=== PATIENT | male | born 1975 | race Caucasian/White ===

== ENCOUNTER 2018-11-22 07:46 | Emergency (ER) | payer OTHER ==
[~2018-11-22] VITALS: Ht 172.7 cm; Wt 95.3 kg
[~2018-11-22 07:46] MED LIST: BECL8.7A5 IH
--- NOTE | 2018-11-22 07:50 | NUR ---
PT BIB SELF C/O WORSENING COUGH AND SOB, PT IS AAOX4. NOT IN RESPIRATORY DISTRESS. BP ELAVATED. KEPT RESTED AND COMFORTABLE, WILL CONTINUE TO MONITOR.
--- NOTE | 2018-11-22 08:13 | NUR ---
PT LABS DRAWNED AND SENT TO LAB. AWAITING RESULTS.
[2018-11-22] MEDS ORDERED: DEXAMETHASONE SOD PHOSPHATE 10 MG/ML VIAL ONE (08:15)
--- NOTE | 2018-11-22 08:15 | NUR ---
RADIOLOGY AT BEDSIDE FOR XRAY.
[2018-11-22 08:20] LABS: BASOPHILS # (AUTO) 0.1 /CMM (0.0-0.2); BASOPHILS % (AUTO) 0.7 % (0.0-2.0); EOSINOPHILS % (AUTO) 7.9 % (0.0-6.0); HEMATOCRIT 43 % (39-51); HEMOGLOBIN 14.6 g/dL (13.5-17.5); LYMPHOCYTES # (AUTO) 2.1 /CMM (0.8-4.8); LYMPHOCYTES % (AUTO) 24.5 % (20.0-44.0); MEAN CORPUSCULAR HGB CONC 34 g/dl (31.0-36.0); MEAN CORPUSCULAR VOLUME 89 fL (80-96); MONOCYTES # (AUTO) 0.8 /CMM (0.1-1.30); MONOCYTES % (AUTO) 9.3 % (2.0-12.0); NEUTROPHILS # (AUTO) 4.9 /CMM (1.8-8.9); NEUTROPHILS % (AUTO) 57.6 % (43.0-81.0); PLATELET COUNT (AUTO) 299 /CMM (150-450); RED BLOOD CELL COUNT(AUTO) 4.86 MIL/uL (4.5-6.0); WHITE BLOOD COUNT (AUTO) 8.5 K/uL (4.3-11.0)
--- NOTE | 2018-11-22 08:22 | NUR ---
EKG DONE BY WAREHOUSE TECHNICIAN.
[2018-11-22] MEDS ORDERED: ALBUTEROL FS 2.5 MG/3 ML VIAL.NEB ONE (08:25)
[2018-11-22] MEDS ORDERED: IPRATROPIUM NEB FS 0.5 MG/2.5 ML AMPUL.NEB ONE (08:25)
[2018-11-22 08:28] LABS: CALCIUM, SERUM 9.1 mg/dL (8.5-10.1); CARBON DIOXIDE 26 mmol/L (21-32); CHLORIDE 103 mmol/L (98-107); CREATININE 0.9 mg/dL (0.6-1.3); GLUCOSE 114 mg/dL (74-106); POTASSIUM 3.3 mmol/L (3.5-5.1); SODIUM SERUM 139 mmol/L (136-145); UREA NITROGEN, BLOOD 21 mg/dL (7-18)
[2018-11-22] MEDS ORDERED: DEXAMETHASONE SOD PHOSPHATE 10 MG/ML VIAL IV ONE (08:30)
[2018-11-22] MEDS ORDERED: IPRATROPIUM NEB FS 0.5 MG/2.5 ML AMPUL.NEB NEB ONE (08:30)
[2018-11-22] MEDS ORDERED: ALBUTEROL FS 2.5 MG/3 ML VIAL.NEB NEB ONE (08:30)
[2018-11-22 08:44] LABS: B-TYPE NATRIURETIC PEPTIDE 9 PG/ML (0-125)
[2018-11-22 09:14] VITALS: BP 162/93
--- NOTE | 2018-11-22 09:16 | NUR ---
IV removed. Catheter intact and site benign. Pressure and 4x4 applied to site. No bleeding noted. Patient discharged to home in stable condition. Written and verbal after care instructions given. Patient verbalizes understanding of instruction.
== END 2018-11-22 09:15 | disposition home or self-care (01) ==
LOC: ER 07:47
DX: J45.901 Unspecified asthma with (acute) exacerbation (principal); I10 Essential (primary) hypertension
CPT/HCPCS: 36415; 71045-TC; 80048-TC; 83880; 84484-TC; 85025-TC; A4606; J1100

== ENCOUNTER 2019-12-15 15:26 | Emergency (ER) | payer BC, MEDICAID ==
[~2019-12-15] VITALS: Ht 170.2 cm; Wt 83.9 kg
--- NOTE | 2019-12-15 16:15 | NUR ---
PT AAOX4. AMBULATORY C/O HEADAHCE ON BACK OF THE HEAD SINCE HE WOKE UP (5AM.) NO ACUTE DISTRESS NOTED UPON ASSESSMENT. AWAITING MD FOR EVAL. WILL CONTINUE TO MONITOR.
[2019-12-15 16:40] VITALS: BP 148/92
--- NOTE | 2019-12-15 16:40 | NUR ---
Patient discharged to home in stable condition. Written and verbal after care instructions given. Patient verbalizes understanding of instruction. PT ambulatory with a steady gait. vss.
== END 2019-12-15 16:41 | disposition home or self-care (01) ==
LOC: ER 15:35
DX: I10 Essential (primary) hypertension (principal); J45.909 Unspecified asthma, uncomplicated; Z79.899 Other long term (current) drug therapy

== ENCOUNTER 2022-01-14 10:28 | Emergency (ER) | payer BC, MEDICAID ==
[~2022-01-14] VITALS: Ht 167.6 cm; Wt 102.1 kg
--- NOTE | 2022-01-14 10:42 | NUR ---
To ER bed 12, "Cyst at back of neck x1year now worse pain goes to back/chest/R arm", aaox3, breathing even and non labored, awaiting md orders
[2022-01-14] MEDS ORDERED: MORPHINE SULFATE INJ 2 MG/ML DISP.SYRIN IV ONE (11:30)
[2022-01-14] MEDS ORDERED: METOCLOPRAMIDE HCL 10 MG/2 ML VIAL IV ONE (11:30)
--- NOTE | 2022-01-14 11:36 | NUR ---
IV LINE IS ESTABLISHED, BLOOD SPECIMEN COLLECTED AND SENT TO THE LAB. THE LINE IS SALINE LOCKED.
[2022-01-14] MEDS ORDERED: MORPHINE SULFATE INJ 2 MG/ML DISP.SYRIN ONE (11:38)
[2022-01-14] MEDS ORDERED: METOCLOPRAMIDE HCL 10 MG/2 ML VIAL ONE (11:38)
--- NOTE | 2022-01-14 11:57 | NUR ---
THE PATIENT IS TAKEN TO [facility]
--- NOTE | 2022-01-14 12:00 | NUR ---
BACK FROM CT
[2022-01-14 12:14] LABS: BASOPHILS % (AUTO) 0.5 % (0.0-2.0); EOSINOPHILS % (AUTO) 4.3 % (0.0-6.0); HEMATOCRIT 39 % (39-51); HEMOGLOBIN 13.1 g/dL (13.5-17.5); LYMPHOCYTES # (AUTO) 2.2 K/uL (0.8-4.8); LYMPHOCYTES % (AUTO) 23.9 % (20.0-44.0); MEAN CORPUSCULAR HGB CONC 34 g/dl (31.0-36.0); MEAN CORPUSCULAR VOLUME 88 fL (80-96); MONOCYTES % (AUTO) 10.6 % (2.0-12.0); NEUTROPHILS # (AUTO) 5.6 K/uL (1.8-8.9); NEUTROPHILS % (AUTO) 60.7 % (43.0-81.0); PLATELET COUNT (AUTO) 326 K/uL (150-450); RED BLOOD CELL COUNT(AUTO) 4.44 MIL/uL (4.5-6.0); WHITE BLOOD COUNT (AUTO) 9.2 K/uL (4.3-11.0)
[2022-01-14 12:21] LABS: CALCIUM, SERUM 8.9 mg/dL (8.5-10.1); CARBON DIOXIDE 26 mmol/L (21-32); CHLORIDE 102 mmol/L (98-107); CREATININE 0.9 mg/dL (0.6-1.3); GLUCOSE 100 mg/dL (74-106); POTASSIUM 3.4 mmol/L (3.5-5.1); SODIUM SERUM 136 mmol/L (136-145); UREA NITROGEN, BLOOD 14 mg/dL (7-18)
[2022-01-14 12:25] LABS: ALANINE AMINOTRANSFERASE 36 U/L (12-78); ALBUMIN 3.9 g/dL (3.4-5.0); ALKALINE PHOSPHATASE 87 U/L (46-116); ASPARTATE AMINOTRANSFERASE 15 U/L (15-37); BILIRUBIN,DIRECT 0.1 mg/dL (0.0-0.2); BILIRUBIN,TOTAL 0.8 mg/dL (0.2-1.0)
--- NOTE | 2022-01-14 13:32 | NUR ---
CALLED INDIGO FOR READ.
[2022-01-14] MEDS ORDERED: CYCL10TA9 PO (14:18)
[2022-01-14] MEDS ORDERED: IBUP-1955 PO (14:18)
[2022-01-14] MEDS ORDERED: DIAZEPAM 5 MG TABLET PO ONE (14:30)
[2022-01-14] MEDS ORDERED: IBUPROFEN 600 MG TABLET PO ONE (14:30)
[2022-01-14] MEDS ORDERED: DIAZEPAM 5 MG TABLET ONE (14:31)
[2022-01-14] MEDS ORDERED: IBUPROFEN 600 MG TABLET ONE (14:31)
--- NOTE | 2022-01-14 14:34 | NUR ---
IV removed. Catheter intact and site benign. Pressure and 4x4 applied to site. No bleeding noted.Patient discharged to home in stable condition. Written and verbal after care instructions given. Patient verbalizes understanding of instruction.
[2022-01-14 14:35] VITALS: BP 132/90
== END 2022-01-14 14:36 | disposition home or self-care (01) ==
LOC: ER 10:31
DX: G43.909 Migraine, unspecified, not intractable, without status migrainosus (principal); M62.838 Other muscle spasm; R07.89 Other chest pain; I10 Essential (primary) hypertension; J45.909 Unspecified asthma, uncomplicated; Z79.899 Other long term (current) drug therapy
CPT/HCPCS: 36415; 70450; 71045; 72125; 80048; 80076; 84484; 85025; 93005; 96374; 96375; 99285; J2270; J2765; J7030

== ENCOUNTER 2022-06-01 10:31 | Emergency (ER) | payer BC ==
[~2022-06-01] VITALS: Ht 172.7 cm; Wt 104.3 kg
[~2022-06-01 10:31] MED LIST changes: +CYCL10TA9 PO; +IBUP-1955 PO
[2022-06-01 10:39] VITALS: BP 151/85
[2022-06-01] MEDS ORDERED: CLIN150C16 PO (11:10)
== END 2022-06-01 11:30 | disposition home or self-care (01) ==
LOC: ER 10:35
DX: T25.232A Burn of second degree of left toe(s) (nail), initial encounter (principal); I10 Essential (primary) hypertension; J45.909 Unspecified asthma, uncomplicated; Z79.899 Other long term (current) drug therapy; X08.8XXA Exposure to other specified smoke, fire and flames, initial encounter; Y93.89 Activity, other specified; Y92.89 Other specified places as the place of occurrence of the external cause; Y99.8 Other external cause status

== ENCOUNTER 2022-09-25 12:48 | Emergency (ER) | payer BC ==
[~2022-09-25] VITALS: Ht 172.7 cm; Wt 99.8 kg
[~2022-09-25 12:48] MED LIST changes: +CLIN150C16 PO
--- NOTE | 2022-09-25 13:00 | NUR ---
BIBself c/o lower back pain since yesterday 09/03 pain scale
--- NOTE | 2022-09-25 13:30 | NUR ---
at bedside for eval
[2022-09-25] MEDS ORDERED: LIDOCAINE 5% (PATCH) 1 EA PATCH TP ONE (13:54)
[2022-09-25] MEDS ORDERED: KETOROLAC TROMETHAMINE INJ 30 MG/ML VIAL ONE (13:54)
[2022-09-25] MEDS ORDERED: METHOCARBAMOL (500MG) 500 MG TABLET ONE (13:54)
[2022-09-25] MEDS ORDERED: METHOCARBAMOL (750MG) 750 MG TABLET PO SCH (14:00)
[2022-09-25] MEDS ORDERED: LIDOCAINE 5% (PATCH) 1 EA PATCH TP SCH (14:00)
[2022-09-25] MEDS ORDERED: KETOROLAC TROMETHAMINE INJ 30 MG/ML VIAL IM ONE (14:00)
--- NOTE | 2022-09-25 14:05 | NUR ---
medicated as ordered
[2022-09-25] MEDS ORDERED: DIAZEPAM 5 MG TABLET PO ONE (15:00)
[2022-09-25] MEDS ORDERED: DIAZEPAM 5 MG TABLET ONE (15:26)
[2022-09-25] MEDS ORDERED: METH-649 PO (15:47)
[2022-09-25] MEDS ORDERED: DIAZ2TAB PO (15:47)
--- NOTE | 2022-09-25 15:47 | NUR ---
valium given per orem instructed not to drive
[2022-09-25 17:06] VITALS: BP 135/81
--- NOTE | 2022-09-25 17:06 | NUR ---
Patient discharged to home in stable condition. Written and verbal after care instructions given. Patient verbalizes understanding of instruction.
== END 2022-09-25 17:06 | disposition home or self-care (01) ==
LOC: ER 12:57
DX: M54.50 Low back pain, unspecified (principal); M62.830 Muscle spasm of back; I10 Essential (primary) hypertension; E78.00 Pure hypercholesterolemia, unspecified; J45.909 Unspecified asthma, uncomplicated; Z79.899 Other long term (current) drug therapy
CPT/HCPCS: 99284; 96372; J1885

== ENCOUNTER 2024-08-08 21:06 | Emergency (ER) | payer BC ==
[~2024-08-08] VITALS: Ht 170.2 cm; Wt 102.1 kg
[~2024-08-08 21:06] MED LIST changes: +DIAZ2TAB PO; +METH-649 PO
[2024-08-08] MEDS ORDERED: TDAP [DIPH/PERTUSSIS/TET] 0.5 ML VIAL IM ONE (21:44)
[2024-08-08] MEDS: TDAP [DIPH/PERTUSSIS/TET] 0.5 ML VIAL IM ONE (21:45)
[2024-08-08] MEDS ORDERED: IBUP-1490 PO (22:08)
[2024-08-08] MEDS ORDERED: LEVO750T46 PO (22:08)
[2024-08-08] MEDS: IBUPROFEN 400 MG TABLET PO ONE (22:21)
[2024-08-08 22:28] VITALS: BP 120/80; TEMP 98; O2SAT 99
== END 2024-08-08 22:30 | disposition home or self-care (01) ==
LOC: ER 21:10
DX: S91.331A Puncture wound without foreign body, right foot, initial encounter (principal); I10 Essential (primary) hypertension; Z79.1 Long term (current) use of non-steroidal anti-inflammatories (NSAID); Z79.899 Other long term (current) drug therapy; W22.8XXA Striking against or struck by other objects, initial encounter; Y93.89 Activity, other specified; Y92.89 Other specified places as the place of occurrence of the external cause; Y99.8 Other external cause status
CPT/HCPCS: 73630-TC; 90715

== ENCOUNTER 2024-08-10 15:04 | Emergency (ER) | payer BC ==
[~2024-08-10] VITALS: Ht 172.7 cm; Wt 98.9 kg
[~2024-08-10 15:04] MED LIST changes: +IBUP-1490 PO; +LEVO750T46 PO
[2024-08-10] MEDS: hydrALAZINE HCL IV 20 MG VIAL IV ONE (15:42)
[2024-08-10] MEDS: ASPIRIN 81 MG TAB.CHEW PO ONE (15:43)
[2024-08-10 15:57] LABS: BASOPHILS # (AUTO) 0.1 K/uL (0.0-0.2); BASOPHILS % (AUTO) 0.5 % (0.0-2.0); EOSINOPHILS # (AUTO) 0.2 K/uL (0.0-0.7); EOSINOPHILS % (AUTO) 2.2 % (0.0-6.0); HEMATOCRIT 43 % (39-51); HEMOGLOBIN 14.9 g/dL (13.5-17.5); LYMPHOCYTES # (AUTO) 2.4 K/uL (0.8-4.8); LYMPHOCYTES % (AUTO) 22.8 % (20.0-44.0); MEAN CORPUSCULAR HEMOGLOBIN 31 PG (26.0-33.0); MEAN CORPUSCULAR HGB CONC 34 g/dl (31.0-36.0); MEAN CORPUSCULAR VOLUME 90 fL (80-96); MONOCYTES # (AUTO) 0.9 K/uL (0.1-1.30); MONOCYTES % (AUTO) 8.8 % (2.0-12.0); NEUTROPHILS % (AUTO) 65.7 % (43.0-81.0); PLATELET COUNT (AUTO) 280 K/uL (150-450); WHITE BLOOD COUNT (AUTO) 10.6 K/uL (4.3-11.0)
[2024-08-10 16:06] LABS: CALCIUM, SERUM 8.7 mg/dL (8.5-10.1); CARBON DIOXIDE 26 mmol/L (21-32); CHLORIDE 105 mmol/L (98-107); CREATININE 1.2 mg/dL (0.6-1.3); GLUCOSE 104 mg/dL (74-106); POTASSIUM 3.8 mmol/L (3.5-5.1); SODIUM SERUM 138 mmol/L (136-145); UREA NITROGEN, BLOOD 16 mg/dL (7-18)
[2024-08-10] MEDS ORDERED: LISINOPRIL (20MG) 20 MG TABLET ONE (16:49)
[2024-08-10] MEDS: LISINOPRIL (20MG) 20 MG TABLET PO SCH (16:50)
[2024-08-10 19:14] VITALS: BP 219/105; TEMP 98; O2SAT 97
== END 2024-08-10 19:14 | disposition home or self-care (01) ==
LOC: ER 15:24
DX: I10 Essential (primary) hypertension (principal); R07.89 Other chest pain
CPT/HCPCS: 99285; 96374; 71045; 93005; 85025; 80048; 36415; 84484; J0360

== ENCOUNTER 2024-12-05 23:28 | Emergency (ER) | payer BC ==
[~2024-12-05] VITALS: Ht 167.6 cm; Wt 97.5 kg
[2024-12-06 00:56] LABS: BASOPHILS # (AUTO) 0.1 K/uL (0.0-0.2); BASOPHILS % (AUTO) 0.8 % (0.0-2.0); EOSINOPHILS % (AUTO) 9.3 % (0.0-6.0); HEMATOCRIT 41 % (39-51); HEMOGLOBIN 14.3 g/dL (13.5-17.5); LYMPHOCYTES # (AUTO) 3.1 K/uL (0.8-4.8); MEAN CORPUSCULAR HEMOGLOBIN 31 PG (26.0-33.0); MEAN CORPUSCULAR HGB CONC 35 g/dl (31.0-36.0); MEAN CORPUSCULAR VOLUME 88 fL (80-96); MONOCYTES % (AUTO) 9.6 % (2.0-12.0); NEUTROPHILS # (AUTO) 5.3 K/uL (1.8-8.9); NEUTROPHILS % (AUTO) 50.3 % (43.0-81.0); PLATELET COUNT (AUTO) 305 K/uL (150-450); RED CELL DISTRIBUTION WIDTH 12.9 % (11.5-15.0); WHITE BLOOD COUNT (AUTO) 10.5 K/uL (4.3-11.0)
[2024-12-06 01:16] LABS: CALCIUM, SERUM 9.3 mg/dL (8.5-10.1); CARBON DIOXIDE 30 mmol/L (21-32); CHLORIDE 101 mmol/L (98-107); CREATININE 0.8 mg/dL (0.6-1.3); GLUCOSE 119 mg/dL (74-106); POTASSIUM 3.5 mmol/L (3.5-5.1); SODIUM SERUM 136 mmol/L (136-145); UREA NITROGEN, BLOOD 14 mg/dL (7-18)
[2024-12-06 01:22] LABS: ALANINE AMINOTRANSFERASE 67 U/L (12-78); ALBUMIN 4.2 g/dL (3.4-5.0); ALKALINE PHOSPHATASE 89 U/L (46-116); ASPARTATE AMINOTRANSFERASE 32 U/L (15-37); BILIRUBIN,DIRECT 0.1 mg/dL (0.0-0.2); BILIRUBIN,TOTAL 0.7 mg/dL (0.2-1.0); TOTAL PROTEIN, SERUM 8.3 g/dL (6.4-8.2)
[2024-12-06 01:32] LABS: SALICYLATE 0.5 mg/dL (2.8-20.0)
[2024-12-06 01:33] LABS: ACETAMINOPHEN <10 ug/ml (10-30); ALCOHOL, BLOOD < 3 mg/dL (0-10)
[2024-12-06 01:56] LABS: APPEARANCE,URINE CLEAR (CLEAR); BILIRUBIN,URINE NEGATIVE (NEGATIVE); BLOOD, URINE NEGATIVE Ery/uL (NEGATIVE); COLOR,URINE YELLOW (YELLOW); KETONES,URINE NEGATIVE (NEGATIVE); LEUKOCYTE ESTERASE ,URINE NEGATIVE (NEGATIVE); NITRITE, URINE NEGATIVE (NEGATIVE); PH,URINE 5.5 (5.0-8.0); PROTEIN,URINE NEGATIVE (NEGATIVE); UGLUCOSE NEGATIVE (NEGATIVE); UROBILINOGEN,URINE 0.2 EU/dL (0.2)
[2024-12-06 02:06] LABS: AMPHETAMINE, URINE NEGATIVE (NEGATIVE); BARBITURATE, URINE NEGATIVE (NEGATIVE); BENZODIAZEPINE, URINE NEGATIVE (NEGATIVE); CANNABINOID, URINE NEGATIVE (NEGATIVE); COCCAINE, URINE NEGATIVE (NEGATIVE); OPIATE, URINE NEGATIVE (NEGATIVE); PHENCYCLIDINE SCREEN,URINE NEGATIVE (NEGATIVE)
[2024-12-06 05:08] VITALS: BP 166/82; TEMP 97.9; O2SAT 96
== END 2024-12-06 05:08 | disposition home or self-care (01) ==
LOC: ER 23:32
DX: T47.1X1A Poisoning by other antacids and anti-gastric-secretion drugs, accidental (unintentional), initial encounter (principal); T48.1X1A Poisoning by skeletal muscle relaxants [neuromuscular blocking agents], accidental (unintentional), initial encounter; I10 Essential (primary) hypertension; Y92.89 Other specified places as the place of occurrence of the external cause; Z20.822 Contact with and (suspected) exposure to COVID-19; Z79.1 Long term (current) use of non-steroidal anti-inflammatories (NSAID); Z79.51 Long term (current) use of inhaled steroids
CPT/HCPCS: 36415; 80048-TC; 80076-TC; 85025-TC; G0480

== ENCOUNTER 2025-03-15 19:29 | Emergency (ER) | payer BC, MEDICAID ==
[2025-03-15] VITALS (9 sets, daily range): BP systolic 188; BP diastolic 90; TEMP 100.1; O2SAT 96–100
[~2025-03-15] VITALS: Ht 172.7 cm; Wt 98.9 kg
[2025-03-15] MEDS ORDERED: ALBUTEROL FS 2.5 MG/3 ML VIAL.NEB ONE (20:37)
[2025-03-15] MEDS ORDERED: IPRATROPIUM NEB FS 0.5 MG/2.5 ML AMPUL.NEB ONE ×2 (20:37→21:05)
[2025-03-15] MEDS: IPRATROPIUM NEB FS 0.5 MG/2.5 ML AMPUL.NEB NEB ONE ×3 (20:44→21:39)
[2025-03-15] MEDS: ALBUTEROL FS 2.5 MG/0.5 ML VIAL.NEB NEB ONE ×4 (20:44→21:39)
[2025-03-15] MEDS ORDERED: Magnesium 1GM/D5W 100ML PREMIX 100 ML IV ONE (20:46)
[2025-03-15] MEDS ORDERED: methylPREDNISolone SOD SUCC 125 MG/2ML VIAL ONE (20:46)
[2025-03-15] MEDS: methylPREDNISolone SOD SUCC 125 MG/2ML VIAL IV ONE (21:00)
[2025-03-15] MEDS: Magnesium 1GM/D5W 100ML PREMIX PIGGYBACK IV ONE (21:00)
[2025-03-15] MEDS ORDERED: ALBUTEROL FS 2.5 MG/0.5 ML VIAL.NEB ONE (21:05)
[2025-03-15 21:06] LABS: BASOPHILS % (AUTO) 0.4 % (0.0-2.0); EOSINOPHILS # (AUTO) 0.3 K/uL (0.0-0.7); EOSINOPHILS % (AUTO) 2.8 % (0.0-6.0); HEMATOCRIT 42 % (39-51); HEMOGLOBIN 14.6 g/dL (13.5-17.5); LYMPHOCYTES # (AUTO) 1.1 K/uL (0.8-4.8); LYMPHOCYTES % (AUTO) 10.3 % (20.0-44.0); MEAN CORPUSCULAR HEMOGLOBIN 31 PG (26.0-33.0); MEAN CORPUSCULAR HGB CONC 35 g/dl (31.0-36.0); MEAN CORPUSCULAR VOLUME 88 fL (80-96); MONOCYTES # (AUTO) 0.8 K/uL (0.1-1.30); MONOCYTES % (AUTO) 7.3 % (2.0-12.0); NEUTROPHILS # (AUTO) 8.4 K/uL (1.8-8.9); NEUTROPHILS % (AUTO) 79.2 % (43.0-81.0); PLATELET COUNT (AUTO) 291 K/uL (150-450); RED BLOOD CELL COUNT(AUTO) 4.78 MIL/uL (4.5-6.0); WHITE BLOOD COUNT (AUTO) 10.6 K/uL (4.3-11.0)
[2025-03-15 21:16] LABS: CALCIUM, SERUM 8.6 mg/dL (8.5-10.1); POTASSIUM 3.4 mmol/L (3.5-5.1)
[2025-03-15 21:19] LABS: INR 0.98 (0.91-1.10); PARTIAL THROMBOPLASTIN TIME 29.6 SEC (24.3-34.3); PROTHROMBIN TIME 10.1 SECS (9.2-11.1)
[2025-03-15 21:21] LABS: ALBUMIN 3.7 g/dL (3.4-5.0); BILIRUBIN,DIRECT 0.1 mg/dL (0.0-0.2); BILIRUBIN,TOTAL 0.6 mg/dL (0.2-1.0); TOTAL PROTEIN, SERUM 7.6 g/dL (6.4-8.2)
[2025-03-15 21:24] LABS: LACTIC ACID 1.7 mmol/L (0.4-2.0)
[2025-03-15 21:44] LABS: APPEARANCE,URINE CLEAR (CLEAR); BILIRUBIN,URINE NEGATIVE (NEGATIVE); BLOOD, URINE NEGATIVE Ery/uL (NEGATIVE); COLOR,URINE YELLOW (YELLOW); KETONES,URINE NEGATIVE (NEGATIVE); LEUKOCYTE ESTERASE ,URINE NEGATIVE (NEGATIVE); NITRITE, URINE NEGATIVE (NEGATIVE); PROTEIN,URINE NEGATIVE (NEGATIVE); UGLUCOSE NEGATIVE (NEGATIVE); UROBILINOGEN,URINE 0.2 EU/dL (0.2)
[2025-03-15] MEDS ORDERED: CEFTRIAXONE 1GM BAG (ER ONLY) 50 ML IV ONE (21:45)
[2025-03-15] MEDS ORDERED: DOXYCYCLINE 100 MG VIAL ONE (21:46)
[2025-03-15] MEDS: CEFTRIAXONE 1 G in IV D5W 50 ML IV ONE (22:00)
[2025-03-15] MEDS: DOXYCYCLINE 100 MG in IV D5W 100 ML IV ONE (22:30)
[2025-03-15] MEDS ORDERED: PRED50TA PO (22:33)
[2025-03-15] MEDS ORDERED: ACETAMINOPHEN 325 MG TABLET ONE (22:35)
[2025-03-15] MEDS: ACETAMINOPHEN 325 MG TABLET PO ONE (22:38)
== END 2025-03-15 23:32 | disposition home or self-care (01) ==
LOC: ER 19:37
DX: J45.901 Unspecified asthma with (acute) exacerbation (principal); I10 Essential (primary) hypertension; Z79.1 Long term (current) use of non-steroidal anti-inflammatories (NSAID); Z79.51 Long term (current) use of inhaled steroids; Z79.899 Other long term (current) drug therapy; Z20.822 Contact with and (suspected) exposure to COVID-19
CPT/HCPCS: 99285; 96365; 96367; 71045; 96375; 87426; 93005; 87804 ×2; 84145; 85025; 80048; 87040 ×2; 83605; 80076; 81003; 36415; 87420; 85730; 94799; 94640 ×3; J2919; J3490 ×2; J0696 ×2; J7060 ×2; J3475; 87086-TC